=== PATIENT | female | born 1940 ===

== ENCOUNTER 2019-07-25 21:23 | Emergency (ER) | payer OTHER ==
[~2019-07-25] VITALS: Ht 177.8 cm; Wt 117.9 kg
[2019-07-25] MEDS ORDERED: ATENOLOL (21:39)
[2019-07-25] MEDS ORDERED: XARELTO (21:40)
[2019-07-25] MEDS ORDERED: DIGOXIN (21:40)
[2019-07-25] MEDS ORDERED: SYNTHROID (21:41)
[2019-07-26] MEDS ORDERED: KETO10TA2 PO (06:04)
== END 2019-07-26 07:20 | disposition home or self-care (01) ==
LOC: ER 21:23
DX: N20.0 Calculus of kidney (principal)